=== PATIENT | male | born 1935 | race Hispanic/Latino ===

== ENCOUNTER 2017-06-21 22:57 | Inpatient (IN) | payer MEDICARE, SELFPAY ==
[2017-06-21] MEDS ORDERED: Ondansetron ODT 4 MG TAB ONE (23:18)
[2017-06-21 23:26] LABS: #Eosinphils 0.1 thou/uL (0.0-0.7); #Lymphocytes 0.6 thou/uL (1.20-3.40); #Monocytes 0.1 thou/uL (0.11-0.59); #Neutrophils 9.3 thou/uL (1.40-6.50); %Eosinophils 0.7 % (0.0-10.0); %Lymphocytes 6.3 % (21.0-51.0); %Monocytes 0.6 % (0.0-10.0); %Neutrophils 92.4 % (42.0-75.0); Hemoglobin 14.1 g/dL (14.0-18.0); Mean Corpuscular HGB CONC 33.2 g/dL (32.0-36.0); Mean Corpuscular Hemoglobin 31.9 pg (27.0-31.0); Mean Corpuscular Volume 95.9 fl (80.0-94.0); Mean Platelet Volume 7.7 fL (7.4-10.4); Platelet Count 254 thou/uL (130-400); Red Blood Cell (RBC) Count 4.42 mill/uL (4.70-6.10); White Blood Cell (WBC) Count 10.1 thou/uL (4.8-10.8)
--- NOTE | 2017-06-21 23:31 | RAD ---
CHEST ONE VIEW 06/21/17 HISTORY: Dyspnea. COMPARISON: None. FINDINGS: Heart size is enlarged. Blunting of the left lateral costophrenic sulcus. There is dense calcificatio ns of the transverse aorta. No pneumothorax. IMPRESSION: Cardiomegaly with mild blunting of the left lateral costophrenic sulcus. This may represent edema and small effusion. Followup two views chest recommended. POS: [facility]
[2017-06-21 23:33] LABS: INR-International Normal Ratio 1.2; PTT 25.4 SEC (22.9-36.1)
[2017-06-21] MEDS ORDERED: Digoxin 0.5 MG/2 ML AMP ONE (23:38)
[2017-06-21] MEDS ORDERED: Diltiazem HCl 125 MG, Admixture Fee 1 EACH in Sodium Chloride 0.9% 100 ML IVPB SCH (23:45)
[2017-06-21] MEDS ORDERED: Digoxin 0.5 MG/2 ML AMP SLOW IVP SCH (23:45)
[2017-06-21 23:49] LABS: ALT (SGPT) 18 U/L (8-55); AST (SGOT) 32 U/L (5-34); Albumin 3.7 g/dL (3.4-4.8); Alkaline Phosphatase 146 U/L (40-150); Anion Gap 19 mmol/L (10-20); BUN (Urea Nitrogen) 28 mg/dL (8.4-25.7); Bilirubin, Total 0.8 mg/dL (0.2-1.2); Calc. Creatinine Clearance 0 mL/min (70-130); Calcium 9.1 mg/dL (7.8-10.44); Carbon Dioxide 18 mmol/L (23-31); Chloride 109 mmol/L (98-107); Estimated GFR-MDRD 77; Globulin 3.6 g/dL (2.4-3.5); Glucose 189 mg/dL (83-110); Potassium 4.5 mmol/L (3.5-5.1); Protein, Total 7.3 g/dL (5.8-8.1); Sodium 141 mmol/L (136-145)
[2017-06-21 23:59] LABS: CKMB 3.2 ng/mL (0-6.6); Troponin I 0.036 ng/mL (< 0.028)
[2017-06-22] MEDS ORDERED: Enoxaparin Sodium 80 MG/0.8 ML SYRINGE ONE (00:12)
[2017-06-22] MEDS ORDERED: cefTRIAXone\\ROCEPHIN 2 GM in Sodium Chloride 0.9% 100 ML IVPB SCH (00:30)
[2017-06-22] MEDS ORDERED: Oseltamivir 75 MG CAP PO SCH (00:45)
[2017-06-22] MEDS ORDERED: Ondansetron ODT 4 MG TAB SL PRN (02:35)
[2017-06-22] MEDS ORDERED: Ondansetron HCl/PF 4 MG/2 ML Vial IVP PRN ×2 (02:35→10:29)
[2017-06-22 02:39] LABS: Troponin I 0.072 ng/mL (< 0.028)
[2017-06-22 03:01] VITALS: BMI 24.2
[2017-06-22 05:52] LABS: Lactic Acid 2.7 mmol/L (0.5-2.2)
[2017-06-22 06:09] LABS: Troponin I 0.075 ng/mL (< 0.028)
[2017-06-22] MEDS ORDERED: Acetaminophen 325 MG TAB PO PRN (06:15)
[2017-06-22 06:57] LABS: Anisocytosis SLIGHT = 6-15 cells (100X) (0-5/hpf); Band 12 % (5-11); Hemoglobin 12.6 g/dL (14.0-18.0); Lymphocytes 1 % (21-51); MDiff Complete? YES; Mean Corpuscular HGB CONC 32.7 g/dL (32.0-36.0); Mean Corpuscular Hemoglobin 31.3 pg (27.0-31.0); Mean Corpuscular Volume 95.7 fl (80.0-94.0); Mean Platelet Volume 8.4 fL (7.4-10.4); Monocytes 2 % (0-10); Neutrophil 85 % (42-75); PLT Morphology Comment Appears Adequate; Platelet Count 219 thou/uL (130-400); Polychromasia SLIGHT = 2-3 cells (100X) (0-2/hpf); Red Blood Cell (RBC) Count 4.02 mill/uL (4.70-6.10); White Blood Cell (WBC) Count 21.9 thou/uL (4.8-10.8)
[2017-06-22 07:00] LABS: ALT (SGPT) 19 U/L (8-55); AST (SGOT) 26 U/L (5-34); Albumin 3.3 g/dL (3.4-4.8); Alkaline Phosphatase 116 U/L (40-150); Anion Gap 14 mmol/L (10-20); BUN (Urea Nitrogen) 28 mg/dL (8.4-25.7); Bilirubin, Total 1.2 mg/dL (0.2-1.2); CRP (Inflammatory) 1.64 mg/dL (= or < 0.5); Calc. Creatinine Clearance 61 mL/min (70-130); Calcium 8.8 mg/dL (7.8-10.44); Carbon Dioxide 18 mmol/L (23-31); Chloride 111 mmol/L (98-107); Estimated GFR-MDRD 87; Globulin 2.8 g/dL (2.4-3.5); Glucose 108 mg/dL (83-110); Magnesium 1.6 mg/dL (1.6-2.6); Potassium 4.2 mmol/L (3.5-5.1); Protein, Total 6.1 g/dL (5.8-8.1); Sodium 139 mmol/L (136-145)
[2017-06-22 07:07] LABS: Phosphorus 1.6 mg/dL (2.3-4.7)
[2017-06-22] MEDS ORDERED: Aspirin 325 mg Enteric Coated Tablet PO SCH (09:00)
--- NOTE | 2017-06-22 09:03 | RAD ---
ABDOMEN 2 VIEWS: Date: 06/22/17 HISTORY: 82-year-old male with nausea and vomiting. COMPARISON: Chest x-ray dated 06/21/17. FINDINGS: Supine and left lateral decubitus views of the abdomen demonstrate gas and fecal material throughout the colon. There is an opacity potentially overlying the left kidney and could represent a renal calc ulus. There is also a questionable small opacity over the region of the right kidney. No large or sma ll bowel obstruction. No evidence for free intraperitoneal air. IMPRESSION: No bowel obstruction or free intraperitoneal air. POS: [facility]
[2017-06-22] MEDS ORDERED: Acetaminophen 500 MG TAB PO PRN (10:29)
[2017-06-22] MEDS ORDERED: cloNIDine 0.1 MG TAB PO PRN (10:29)
[2017-06-22] MEDS ORDERED: hydrALAZINE 20 MG/ML VIAL SLOW IVP PRN (10:29)
[2017-06-22] MEDS ORDERED: Ondansetron ODT 4 MG TAB PO PRN (10:29)
[2017-06-22] MEDS ORDERED: Dextrose 5% in Water 1,000 ML IV PRN (10:29)
[2017-06-22] MEDS ORDERED: Dextrose 50% Abboject 50 ML SYRINGE SLOW IVP PRN (10:29)
[2017-06-22] MEDS ORDERED: HumaLOG 300 UNITS/3 ML VIAL SC PRN ×2 (10:29)
[2017-06-22] MEDS ORDERED: Senokot 8.6 MG TAB PO PRN (10:29)
[2017-06-22] MEDS ORDERED: Diltiazem 125 MG in Sodium Chloride 0.9% 100 ML IVPB SCH (11:00)
[2017-06-22] MEDS ORDERED: Docusate 100 MG CAP PO SCH ×2 (11:00)
--- NOTE | 2017-06-22 11:11 | HP ---
DATE OF ADMISSION: 06/22/2017 PRIMARY CARE PROVIDER: Lul [place], [place]. CHIEF COMPLAINT: Shortness of breath and palpitations. HISTORY OF PRESENT ILLNESS: This is an 82-year-old male who presents to [facility] Emergency Department after complaining of increased shortness of breath, palpitations, and coughing approximately 1 hour prior to arrival. The patient states the symptoms began while at home with some shaking sensation, shortness of breath and coughing. The patient apparently was noted with fever en route; however, the patient denied any fever at home. The patient was treated with Ty lenol by EMS personnel as well as placed on a monitor showing atrial fibrillation with rapid ventricu lar response with heart rates in the 160s. The patient does admit to history of hypertension and con gestive heart failure as well as peripheral vascular disease and prior stroke. The patient had appar ently recently traveled from [place] on 06/09/2017 to permanently relocate in the [facility] with family. No specific change to his chronic medication regimen and patient states he has been compliant with his medications. The patient states he takes long-term Coumadin after sustai clare a stroke in the past. The patient denied any similar symptoms in family members at home, increa sed lower extremity swelling, coughing up blood or diarrhea. The patient states he is actually const ipated with his last bowel movement over the last 3-4 days. The patient also complains of difficulty with urination with lower abdominal pain. The patient did experience some nausea and vomiting on se veral episodes prior to evaluation in the emergency room. In the emergency room, patient was noted w ith atrial fibrillation with rapid ventricular response as stated previously and treated with IV Card izem as well as digoxin. The patient was placed on an infusion of diltiazem currently at 5 mg per ho ur with heart rate in the 80s. The patient also received subcutaneous Lovenox 70 mg x1 dose as well as Rocephin 2 g x1 dose. The patient also received Tamiflu 75 mg x1 dose. The patient was transferr ed to the telemetry unit for further evaluation. PAST MEDICAL HISTORY: 1. Question of congestive heart failure, unknown ejection fraction. 2. Diabetes mellitus type 2 with peripheral vascular disease. 3. History of hypertension. 4. History of cerebrovascular accident x4. 5. Question of benign prosthetic hyperplasia. 6. Chronic anticoagulation with Coumadin. PAST SURGICAL HISTORY: 1. Status post right bckax-hay-dawf amputation. 2. Status post appendectomy. CURRENT MEDICATIONS: 1. Coreg 12.5 mg p.o. b.i.d. 2. Cilostazol 100 mg p.o. daily. 3. Lasix 40 mg 1 tab p.o. daily. 4. Spironolactone 25 mg one tab p.o. daily. 5. Coumadin 3 mg 1 tab p.o. daily. ALLERGIES: No known drug allergies. FAMILY HISTORY: Positive for hypertension and diabetes. SOCIAL HISTORY: The patient originally from [place] relocating to [facility] to live with family at 06/09/2017. No current alcohol, tobacco or illicit drug use. REVIEW OF SYSTEMS: The following complete review of systems was negative, unless otherwise mentioned in the HPI or below: Constitutional: Weight loss or gain, ability to conduct usual activities. Skin: Rash, itching. Eyes: Double vision, pain. ENT/Mouth: Nose bleeding, neck stiffness, pain, tenderness. Cardiovascular: Palpitations, dyspnea on exertion, orthopnea. Respiratory: Shortness of breath, wheezing, cough, hemoptysis, fever or night sweats. Gastrointestinal: Poor appetite, abdominal pain, heartburn, nausea, vomiting, constipation, or diarr hea. Genitourinary: Urgency, frequency, dysuria, nocturia. Musculoskeletal: Pain, swelling. Neurologic/Psychiatric: Anxiety, depression. Allergy/Immunologic: Skin rash, bleeding tendency. Otherwise negative except as stated per HPI. PHYSICAL EXAMINATION: VITAL SIGNS: Currently blood pressure 137/73, pulse 89, respiratory rate 21, temperature 97.4 degree s Fahrenheit, O2 saturation 100% on room air. GENERAL APPEARANCE: This is an 82-year-old male, [place] speaking only, in no acute distres s. HEENT: Pupils are equal, round, and reactive to light and accommodation. Extraocular muscles are in tact. No scleral icterus, no conjunctival injection. Nares patent. OP is clear. Teeth in poor rep air. NECK: Supple, no cervical adenopathy, no thyromegaly, no carotid bruits, no JVD appreciated. Cervic al spine with full active and passive range of motion. No meningeal signs appreciated. CHEST: Diminished breath sounds in the bases bilaterally. CARDIOVASCULAR: S1 and S2 with irregular rate and rhythm. ABDOMEN: Rounded, soft, nontender, nondistended. Bowel sounds are positive in all four quadrants. There is no hepatosplenomegaly, no abdominal bruits, no rebound or guarding appreciated. EXTREMITIES: Right lkkgg-gsv-jwmv amputation. Stump intact. Left lower extremity without edema. P ulses are palpable distally at the dorsalis pedis, posterior tibial and popliteal arteries of the lef t lower extremity. NEUROLOGIC: Cranial nerves II-XII are grossly intact. No focal or lateralizing signs appreciated. PERTINENT LABORATORY DATA AND X-RAY FINDINGS: Sodium 139, potassium 4.2, chloride 111, CO2 of 18, BU N 28, creatinine 0.84, estimated GFR of 87, glucose 108, lactic acid level ranged between 2.7-5.4, ca lcium 8.8, phosphorus 1.6, magnesium 1.6. LFT within normal limits. Troponin I ranged between 0.036 -0.075. CRP 1.64. BNP 2428, albumin 3.3. TSH 0.50. CBC showed white blood cell count ranging betw een 10.1-21.9. Hemoglobin ranged between 12.6-14.1 and platelet count 219 with 85% neutrophilia. PT 15.0, INR 1.2, PTT 25.4. Influenza A and B antigen on 06/21/2017 negative. Portable chest x-ray da bindu 06/21/2017 showed cardiomegaly with mild blunting of the left lateral costophrenic sulcus. Abdom inal radiographs dated 06/22/2017 showed no acute intraabdominal process. EKG dated 06/21/2017 by my interpretation shows atrial fibrillation with rapid ventricular response, heart rate in the 60s. ASSESSMENT AND PLAN: 1. Atrial fibrillation with rapid ventricular response. The patient will be admitted to the telemet ry unit. We will continue diltiazem infusion at 5 mg per hour. Restart home Coreg 12.5 mg p.o. b.i. d. Check 2D transthoracic echocardiogram. The patient received Lovenox 70 mg x1 dose in the emergen cy room. We will hold further anticoagulation. Resume home regimen of Coumadin 3 mg daily. Consult Cardiology Service for further evaluation and recommendations for management. Check magnesium and p hosphorus level in the a.m. 2. Acute febrile illness, etiology unclear. Suspicion for viral syndrome. Check respiratory virus panel, PCR. Continue Rocephin 2 g IV q.24 hours, pending final culture results. Questionable urinar y tract infection. 3. Lactic acidosis. Suspect secondary to febrile illness. Overall, lactic acid level improving. W e will continue supportive management and empiric IV antibiotic therapy as outlined previously. 4. Elevated troponin I. Suspect demand ischemia in the context of atrial fibrillation with rapid ve ntricular response. Consult Cardiology Service for further evaluation. 5. Leukocytosis with neutrophilia. Continue empiric IV antibiotic therapy with Rocephin 2 grams santos ly. Await final blood and urine culture results. 6. Diabetes mellitus type 2. Insulin sliding scale for reflexive coverage. Check A1c level in the a.m. Serial Accu-Cheks before meals and at bedtime. 7. Hypertension. Resume home antihypertensive regimen and monitor clinical response. 8. Prophylaxis. Sequential compression devices while in bed. Pepcid 20 mg p.o. b.i.d. 9. Code status is FULL. Surrogate medical decision maker is the patient's daughter.
--- NOTE | 2017-06-22 14:32 | CON ---
DATE OF CONSULTATION: 06/22/2017 REASON FOR CONSULTATION: Atrial fibrillation. PRIMARY CARE PROVIDER: Santiago Kim D.O. HISTORY OF PRESENT ILLNESS: Mr. Wadsworth is an 82-year-old gentleman who is visiting from [place]. He has an extensive cardiac history with a cardiomyopathy, diabetes mellitus, hypertension, and CVA x4 in the past. He recently presented with shortness of breath. He has also presented with febrile illness. The history is fairly limited. Upon my arrival, he had diffuse pain and was shivering. He has been placed on antibiotic therapy. PAST MEDICAL HISTORY: As above including right kipcw-exl-mesx amputation and appendectomy. HOME MEDICATIONS: Include cilostazol, Lasix, Coreg, spironolactone, Coumadin. ALLERGIES: None. SOCIAL HISTORY: As above. No current tobacco or alcohol use. REVIEW OF SYSTEMS: Ten point review of systems is reviewed and as above, otherwise negative. PHYSICAL EXAMINATION: GENERAL: Patient is a pleasant male who is in no acute distress. The patient appears his stated age . VITAL SIGNS: Blood pressure 131/60, pulse 76, temperature 97.5. NEUROLOGIC: The patient is alert and oriented times 3 with no focal neurologic deficits. HEENT: Sclerae without icterus. Mouth has moist mucous membranes with normal pallor. NECK: No JVD. Carotid upstroke brisk. No bruits bilaterally. LUNGS: Clear to auscultation with unlabored respirations. BACK: No scoliosis or kyphosis. CARDIAC: Irregular, irregular. ABDOMEN: Soft, nontender, nondistended. No peritoneal signs present. No hepatosplenomegaly. No ab normal striae. EXTREMITIES: 2+ femoral and 2+ dorsalis pedis pulses. No cyanosis, clubbing, or edema. SKIN: No gross abnormalities. PERTINENT LABORATORY DATA: Hemoglobin 12.6, creatinine 0.84. Troponin 0.05. IMPRESSION: 1. Atrial fibrillation with rapid ventricular response. 2. Febrile illness. 3. Peripheral vascular disease. 4. Coronary artery disease. 5. Cardiomyopathy ?. RECOMMENDATIONS: Continue with carvedilol at 12.5 mg 1 p.o. b.i.d. He is currently on Cardizem at 5 mg per hour for rate control. We will increase Cardizem to t.i.d. dosing for better rate control. Continue antibiotic treatment. Echo with Doppler to assess LV function.
[2017-06-22] MEDS: traMADol HCl 50 MG TAB PO PRN (14:59)
[2017-06-22] MEDS: Carvedilol 6.25 MG TAB PO SCH ×2 (15:01→21:29)
[2017-06-22] MEDS: Warfarin Sodium 3 MG TAB PO SCH (17:57)
[2017-06-22] MEDS ORDERED: Carvedilol 6.25 MG TAB PO SCH (21:00)
[2017-06-22] MEDS: Docusate 100 MG CAP PO SCH (21:29)
[2017-06-22] MEDS: Famotidine 20 MG TAB PO SCH (21:29)
[2017-06-23 05:34] LABS: Hemoglobin A1c 4.9 % (4.0-6.0)
[2017-06-23 05:47] LABS: Magnesium 1.7 mg/dL (1.6-2.6); Phosphorus 3.2 mg/dL (2.3-4.7)
[2017-06-23 05:52] LABS: Anisocytosis SLIGHT = 6-15 cells (100X) (0-5/hpf); Band 2 % (5-11); Hemoglobin 11.2 g/dL (14.0-18.0); Lymphocytes 14 % (21-51); MDiff Complete? YES; Macrocytosis SLIGHT = 6-15 cells (100X) (0-5/hpf); Mean Corpuscular HGB CONC 32.5 g/dL (32.0-36.0); Mean Corpuscular Hemoglobin 31.5 pg (27.0-31.0); Mean Corpuscular Volume 96.7 fl (80.0-94.0); Mean Platelet Volume 8.4 fL (7.4-10.4); Monocytes 9 % (0-10); Neutrophil 73 % (42-75); PLT Morphology Comment Appears Adequate; Platelet Count 159 thou/uL (130-400); Reactive Lymphocytes 2 % (0-10); Red Blood Cell (RBC) Count 3.57 mill/uL (4.70-6.10); Tear Drops SLIGHT = 2-5 cells (100X) (0-1/hpf)
[2017-06-23] MEDS: traMADol HCl 50 MG TAB PO PRN (08:20)
[2017-06-23] MEDS: Aspirin 81 mg Enteric Coated Tablet PO SCH (08:26)
[2017-06-23] MEDS: Famotidine 20 MG TAB PO SCH ×2 (08:26→21:06)
[2017-06-23] MEDS: Spironolactone 25 MG TAB PO SCH (08:26)
[2017-06-23] MEDS: Docusate 100 MG CAP PO SCH ×2 (08:26→21:06)
[2017-06-23] MEDS: Carvedilol 6.25 MG TAB PO SCH ×3 (08:26→21:05)
[2017-06-23] MEDS: Cilostazol 100 MG TAB PO SCH (08:47)
[2017-06-23] MEDS ORDERED: Prevnar 13-Val Conj/PF 0.5 ML SYRINGE IM ONE (09:00)
[2017-06-23] MEDS ORDERED: FLU VACC TS2017-18 (>65YR) 0.5 ML SYRINGE IM ONE (09:00)
[2017-06-23] MEDS: Morphine 4 MG/ML Carpuject SLOW IVP PRN (09:02)
[2017-06-23] MEDS: cefTRIAXone\\ROCEPHIN 2 GM in Sodium Chloride 0.9% 100 ML IVPB SCH (10:03)
--- NOTE | 2017-06-23 10:20 | PDOC.PN ---
- Subjective Encounter Start Date: 06/23/17 Encounter Start Time: 10:15 Subjective: f/u for A-fib RVR on prior Cardizem gtt now d/c'd due to bradycardia. -: Bacteremia noted with suspected E. coli with 2/2 blood cx + tx with -: Rocephin. c/o general body pain. No fever or cough - Objective Resuscitation Status: Resuscitation Status FULL:Full Resuscitation MAR Reviewed: Yes Vital Signs & Weight: Vital Signs (12 hours) Temp Pulse Resp BP BP Pulse Ox 06/23/17 08:26 119/82 06/23/17 07:05 97.5 F L 83 18 119/82 99 06/23/17 04:00 97.9 F 60 20 115/57 L 99 06/22/17 23:30 97.5 F L 70 20 98/54 L 97 Weight Weight 144 lb I&O: 06/22/17 06/23/17 06/24/17 06:59 06:59 06:59 Intake Total 1245 Output Total 210 Balance 1035 Result Diagrams: 06/23/17 04:49 06/22/17 05:12 Additional Labs: Accuchecks 06/23/17 06/22/17 06/22/17 05:08 21:09 16:58 POC Glucose 127 H 132 H 107 06/22/17 12:37 POC Glucose 135 H Microbiology 06/22/17 14:04 Nasopharyngeal swab Respiratory Virus Panel (PCR) ([facility]) - Final 06/21/17 23:15 Nasal swab Influenza Types A,B Direct EIA - Final 06/21/17 23:27 Venous blood - Right Arm Blood Culture - Preliminary Gram Negative Osei 06/21/17 23:15 Venous blood - Left Arm Blood Culture - Preliminary Escherichia coli Laboratory Tests 06/21/17 06/21/17 06/22/17 23:15 23:15 05:12 WBC 10.1 Hgb 14.1 Neutrophils % 92.4 H Neutrophils % (Manual) Band Neuts % (Manual) Hemoglobin A1c Lactic Acid 5.4 H* 2.7 H Phosphorus Magnesium 06/22/17 06/23/17 06/23/17 05:12 04:49 04:49 WBC 21.9 H Hgb 12.6 L Neutrophils % Neutrophils % (Manual) 85 H 73 Band Neuts % (Manual) 12 H 2 L Hemoglobin A1c Lactic Acid Phosphorus 3.2 Magnesium 1.7 06/23/17 04:49 WBC Hgb Neutrophils % Neutrophils % (Manual) Band Neuts % (Manual) Hemoglobin A1c 4.9 Lactic Acid Phosphorus Magnesium Radiology Reviewed by me: Yes (2D echo - EF 20-25%, mod MR, AR, LAE) EKG Reviewed by me: Yes (Tele - A-fib in 60's) Phys Exam - Physical Examination Constitutional: NAD HEENT: PERRLA, oral pharynx no lesions Neck: no JVD, supple Respiratory: no wheezing, clear to auscultation bilateral Cardiovascular: irregular Gastrointestinal: soft, non-tender, no distention, positive bowel sounds R AKA, stump intact Musculoskeletal: pulses present Neurological: normal sensation, moves all 4 limbs Skin: normal turgor, cap refill <2 seconds Dx/Plan (1) Sepsis Code(s): A41.9 - SEPSIS, UNSPECIFIED ORGANISM Status: Acute Qualifiers: Sepsis type: Escherichia coli Qualified Code(s): A41.51 - Sepsis due to Escherichia coli [E. coli] Comment: Continue Rocephin 2gm IV daily, await final sensitivities (2) Atrial fibrillation with RVR Code(s): I48.91 - UNSPECIFIED ATRIAL FIBRILLATION Status: Acute Comment: ? acute/chronic, rate controlled currently off Cardizem gtt, continue Coreg 12.5mg TID, Coumadin daily (3) Febrile illness, acute Code(s): R50.9 - FEVER, UNSPECIFIED Status: Acute (4) Elevated troponin I level Code(s): R74.8 - ABNORMAL LEVELS OF OTHER SERUM ENZYMES Status: Acute (5) Cardiomyopathy Code(s): I42.9 - CARDIOMYOPATHY, UNSPECIFIED Status: Chronic Comment: EF 20- 25%, continue Losartan and Spironolactone, ASA 81mg daily, ? AICD - Plan continue antibiotics, PT/OT, social work associate, DVT proph w/SCDs Stable overall -: Continue Rocephin pending final sensitivities -: Pain control with Tylenol, Ultram -: Morphine Sulfate 2mg IV q3h prn severe pain -: Continue Losartan, ASA, Lipitor * Toradol 15mg IV q6h * AM lab: BMP, CBC
[2017-06-23] MEDS: Ketorolac Tromethamine 30 MG/ML VIAL IVP SCH ×3 (12:19→23:49)
[2017-06-23] MEDS: Warfarin Sodium 3 MG TAB PO SCH (17:44)
[2017-06-23] MEDS: Atorvastatin Calcium 40 MG TAB PO SCH (21:06)
[2017-06-24 05:32] LABS: Anion Gap 13 mmol/L (10-20); BUN (Urea Nitrogen) 40 mg/dL (8.4-25.7); Calc. Creatinine Clearance 51 mL/min (70-130); Calcium 8.4 mg/dL (7.8-10.44); Carbon Dioxide 22 mmol/L (23-31); Chloride 108 mmol/L (98-107); Estimated GFR-MDRD 68; Glucose 96 mg/dL (83-110); Potassium 4.5 mmol/L (3.5-5.1); Sodium 138 mmol/L (136-145)
[2017-06-24] MEDS: Ketorolac Tromethamine 30 MG/ML VIAL IVP SCH ×3 (05:32→17:41)
[2017-06-24 05:41] LABS: Band 2 % (5-11); Eosinophils 2 % (0-10); Hemoglobin 11.4 g/dL (14.0-18.0); Lymphocytes 13 % (21-51); MDiff Complete? YES; Mean Corpuscular HGB CONC 33.3 g/dL (32.0-36.0); Mean Corpuscular Hemoglobin 31.8 pg (27.0-31.0); Mean Corpuscular Volume 95.5 fl (80.0-94.0); Mean Platelet Volume 8.6 fL (7.4-10.4); Monocytes 6 % (0-10); Neutrophil 77 % (42-75); PLT Morphology Comment Appears Adequate; Platelet Count 159 thou/uL (130-400); RBC Distribution Width 14.8 % (11.5-14.5); Red Blood Cell (RBC) Count 3.59 mill/uL (4.70-6.10); White Blood Cell (WBC) Count 6.5 thou/uL (4.8-10.8)
[2017-06-24] MEDS: Losartan 25 MG TAB PO SCH (09:26)
[2017-06-24] MEDS: Aspirin 81 mg Enteric Coated Tablet PO SCH (09:26)
[2017-06-24] MEDS: Cilostazol 100 MG TAB PO SCH (09:26)
[2017-06-24] MEDS: Carvedilol 6.25 MG TAB PO SCH ×3 (09:26→20:36)
[2017-06-24] MEDS: Docusate 100 MG CAP PO SCH ×2 (09:26→20:38)
[2017-06-24] MEDS: cefTRIAXone\\ROCEPHIN 2 GM in Sodium Chloride 0.9% 100 ML IVPB SCH (09:27)
[2017-06-24] MEDS: Famotidine 20 MG TAB PO SCH ×2 (09:27→20:36)
[2017-06-24] MEDS: Spironolactone 25 MG TAB PO SCH (09:27)
--- NOTE | 2017-06-24 09:49 | PDOC.PN ---
- Subjective Encounter Start Date: 06/24/17 Encounter Start Time: 09:47 Mr. Ananth Lopez was seen today in follow-up of AFIB and E. Coli bacteremia- He does not have any comlaints today. He admits to some lower abdominal pain, and occasional constipation. - Objective Resuscitation Status: Resuscitation Status FULL:Full Resuscitation MAR Reviewed: Yes Vital Signs & Weight: Vital Signs (12 hours) Temp Pulse Resp BP BP Pulse Ox 06/24/17 09:26 122/56 L 06/24/17 07:05 97.6 F 82 16 122/56 L 96 06/24/17 03:30 97.3 F L 85 24 H 131/73 100 06/23/17 23:00 97.4 F L 70 20 114/60 95 Weight Weight 145 lb 8 oz I&O: 06/23/17 06/24/17 06/25/17 06:59 06:59 06:59 Intake Total 1245 240 Output Total 210 Balance 1035 240 Result Diagrams: 06/24/17 04:48 06/24/17 04:48 Phys Exam - Physical Examination HEENT: PERRLA Respiratory: no wheezing, no rales, no rhonchi, clear to auscultation bilateral Cardiovascular: RRR, no significant murmur, no rub Gastrointestinal: soft, non-tender, positive bowel sounds Musculoskeletal: edema present + mild edema on the left foot, pulse is diminshed mild erythema of the foot Dx/Plan (1) E coli bacteremia Code(s): R78.81 - BACTEREMIA Status: Acute (2) Atrial fibrillation with RVR Code(s): I48.91 - UNSPECIFIED ATRIAL FIBRILLATION Status: Acute Comment: ? acute/chronic, rate controlled currently off Cardizem gtt, continue Coreg 12.5mg TID, Coumadin daily (3) Diabetes mellitus type 2 in nonobese Code(s): E11.9 - TYPE 2 DIABETES MELLITUS WITHOUT COMPLICATIONS Status: Acute (4) Hypertension Code(s): I10 - ESSENTIAL (PRIMARY) HYPERTENSION Status: Acute (5) Peripheral vascular disease Code(s): I73.9 - PERIPHERAL VASCULAR DISEASE, UNSPECIFIED Status: Acute - Plan * AFIB with RVR- patients' heart rate is stable, and he is now off the Cardizem drip * Continue Carvediolol * Coumadin for CVA prevention- will need to check his PT/INR * E. Coli Bacteremia- ? urine source. I was not able to locate a UA or Urine culture-. He has been on antibiotics several days now, but will check a UA. He has complained of some lower abdominal discomfort, and constipation- will check a CT-scan of abdomen/pelvis- consult ID to help with recommending Antibiotic, and length of therapy * DM- blood glucose is stable * HTN- blood pressure is stable
[2017-06-24 10:12] LABS: INR-International Normal Ratio 1.2; Prothrombin Time 15.8 SEC (12.0-14.7)
--- NOTE | 2017-06-24 13:25 | CT ---
CT ABDOMEN AND PELVIS WITH CONTRAST: HISTORY: E. coli bacteremia. Mild abdominal pain. COMPARISON: None. FINDINGS: There is edema in the lung bases. Small effusions. Focal area of consolidation along the medial mar gin of the left lower lobe which may represent layering effusion versus consolidation. Heart size is enlarged. No pericardial effusion. No dilated loops of large or small bowel. Moderate diverticular disease of the sigmoid colon without active inflammation. Numerous calcifications of the kidneys bilaterally which are nonobstructive. No hydroureteral nephro sis. There is minimal contrast within the vascular structures of the abdomen and pelvis likely seque lae of poor cardiac output. Visualized portions of the superior mesenteric artery and celiac trunk a re both patent. There is focal ectasia of the infrarenal abdominal aorta with peripheral thrombosis measuring up to 2.4 cm in size, nonaneurysmal. Moderate degenerative disease at pubic symphysis. Mo derate degenerative disk space disease at L4-56. The spleen and liver are unremarkable as well as the gallbladder. Mild fatty atrophy of the pancreas . IMPRESSION: 1. Limited evaluation due to the lack of normal contrast opacification of the abdomen and pelvis, li ann sequelae of poor cardiac output. 2. Pulmonary edema. 3. Cardiomegaly. 4. Nonobstructive bilateral renal calculi. 5. Likely layering pleural effusion on the left, mostly likely consolidation in the left lower lobe. 6. Mild diverticular disease of sigmoid colon without active inflammation. POS: [facility]
[2017-06-24 14:45] LABS: Bilirubin Negative (Negative); Blood, Urine Moderate (Negative); Clarity CLEAR (Clear); Glucose, Urine (Dipstick) Negative (Negative); Leukocyte Moderate (Negative); Nitrite Negative (Negative); Protein, Urine (Dipstick) Negative (Neg-Trace)
[2017-06-24 14:50] LABS: Bacteria/HPF None Seen HPF (None Seen); Hyaline Casts/LPF 4-6 HYALINE CAST LPF (0-3 Hyaline); Pathc Cast-AUWi Flag 0.54 (0-2.49); Squamous Epithelial 0-3 HPF (0-3); WBC/HPF 21-50 HPF (0-3)
[2017-06-24 14:52] LABS: Specific Gravity, Urine 1.059 (1.002-1.036); Yeast-AUWi Flag 52.3 (0-25.0)
[2017-06-24 15:02] LABS: Yeast-All Forms None Seen HPF (None Seen)
[2017-06-24] MEDS ORDERED: Iopamidol 370 76% 100 ML VIAL ONE (15:46)
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
[2017-06-24] MEDS: Warfarin Sodium 3 MG TAB PO SCH (17:41)
[2017-06-24] MEDS ORDERED: Sodium Chloride 0.9% 10 ML ONE ×3 (20:23→23:43)
[2017-06-24] MEDS: Atorvastatin Calcium 40 MG TAB PO SCH (20:36)
[2017-06-25] MEDS: Ketorolac Tromethamine 30 MG/ML VIAL IVP SCH ×5 (00:04→23:16)
[2017-06-25 05:26] LABS: INR-International Normal Ratio 1.2; Prothrombin Time 15.8 SEC (12.0-14.7)
[2017-06-25] MEDS: Sodium Chloride 0.9% 10 ML ONE (05:58)
[2017-06-25] MEDS: Docusate 100 MG CAP PO SCH ×2 (09:23→20:50)
[2017-06-25] MEDS: Losartan 25 MG TAB PO SCH (09:23)
[2017-06-25] MEDS: Cilostazol 100 MG TAB PO SCH (09:23)
[2017-06-25] MEDS: Famotidine 20 MG TAB PO SCH ×2 (09:24→20:50)
[2017-06-25] MEDS: Aspirin 81 mg Enteric Coated Tablet PO SCH (09:24)
[2017-06-25] MEDS: Carvedilol 6.25 MG TAB PO SCH ×3 (09:24→20:50)
[2017-06-25] MEDS: Spironolactone 25 MG TAB PO SCH (09:24)
--- NOTE | 2017-06-25 11:41 | PDOC.PN ---
- Subjective Encounter Start Date: 06/25/17 Encounter Start Time: 11:40 Mr. Lopez was seen today in follow-up. He complains of some pain in his left foot. He also notes some abdominal discomfort as well. - Objective Resuscitation Status: Resuscitation Status FULL:Full Resuscitation MAR Reviewed: Yes Vital Signs & Weight: Vital Signs (12 hours) Temp Pulse Resp BP BP BP Pulse Ox 06/25/17 09:24 169/85 H 06/25/17 08:05 98 F 85 20 169/85 H 100 06/25/17 08:00 98 F 85 20 100 06/25/17 04:00 96.3 F L 85 18 126/76 92 L 06/25/17 00:03 77 20 95/56 L 98 Weight Weight 139 lb 8 oz I&O: 06/24/17 06/25/17 06/26/17 06:59 06:59 06:59 Intake Total 240 991 Balance 240 991 Result Diagrams: 06/24/17 04:48 06/24/17 04:48 Additional Labs: Accuchecks 06/25/17 06:11 POC Glucose 94 Phys Exam - Physical Examination HEENT: PERRLA Respiratory: no wheezing + basilar rales Cardiovascular: RRR, no significant murmur Gastrointestinal: soft, non-tender, positive bowel sounds Musculoskeletal: edema present Mild hyperemia of the foot, decreased pulses Dx/Plan (1) E coli bacteremia Code(s): R78.81 - BACTEREMIA Status: Acute (2) Atrial fibrillation with RVR Code(s): I48.91 - UNSPECIFIED ATRIAL FIBRILLATION Status: Acute Comment: ? acute/chronic, rate controlled currently off Cardizem gtt, continue Coreg 12.5mg TID, Coumadin daily (3) Diabetes mellitus type 2 in nonobese Code(s): E11.9 - TYPE 2 DIABETES MELLITUS WITHOUT COMPLICATIONS Status: Acute (4) Hypertension Code(s): I10 - ESSENTIAL (PRIMARY) HYPERTENSION Status: Acute (5) Peripheral vascular disease Code(s): I73.9 - PERIPHERAL VASCULAR DISEASE, UNSPECIFIED Status: Acute - Plan * E Coli Bacteremia- likely from a urine source- Will continue Rocephin IV until discharge, and then will transition to Omnicef * Acute on chronic systolic heart failure- compensated * HTN- blood pressure has been a bit labile- will monitor * DM- blood glucose is stable * AFIB - heart rate is stable- INR is subtherapeutic- will increase coumadin to 5 mg a day * Disposition as per Cardiology.
--- NOTE | 2017-06-25 11:59 | PQF ---
CLINICAL DOCUMENTATION IMPROVEMENT CLARIFICATION FORM: ICD-10 Updated PLEASE DO AN ADDENDUM TO THE PROGRESS NOTE WITH ANY DOCUMENTATION UPDATES OR ADDITIONS AND CARRY THROUGH TO DC SUMMARY. THANK YOU. DATE: 06/25 ATTN: DR. JULIANNE NUR Please exercise your independent, professional judgment in responding to the clarification form. Clinical indicators are provided on the bottom of this form for your review, Please specify: Present on Admission (POA): [ X ] Yes [ ] No [ ] Unable to determine Please check appropriate box(s): [ X] Sepsis due to: (Pna, UTI, gangrenous gall bladder, etc.) __Probable Urine source [ ] Localized infection without sepsis [ ] Other diagnosis [ ] Unable to determine For continuity of documentation, please document condition throughout progress notes and discharge summary. Thank You. CLINICAL INDICATORS - SIGNS / SYMPTOMS / LABS WBC: 10.1 (06/21, ADMIT) 21.9 (06/22, W/IN 24 HRS OF ADMIT) BANDS: 12% (06/22, W/IN 24 HRS ADMIT) LACTIC ACID: 5.4 (06/21) CRP: 1.64 (06/22, W/IN 24 HRS ADMIT) BLOOD CULTURES TAKEN IN ER 06/21: POSITIVE E COLI IN 2 OF 2 BOTTLES ATTENDING PHYSICIAN PN DATED 06/23: DX/PLAN: 1) SEPSIS D/T E COLI INFECTIOUS DISEASE CONSULT DOCUMENTATION 06/24: ASSESSMENT & PLAN: ...NOW WITH EVIDENCE OF SEPSIS WITH E COLI BACTEREMIA 2/2 LIKELY TO UTI W/LIKELY PYELONEPHRITIS RISK FACTORS: E COLI BACTEREMIA (2 OF 2 BLOOD CX) UTI W/LIKELY PYELONEPHRITIS TREATMENTS: IV ANTIBIOTICS (ROCEPHIN 06/21 - PRESENT) INFECTIOUS DISEASE CONSULT THANK YOU! Lucy (This form is maintained as a part of the permanent medical record) 2014 [employer]. All Rights Reserved Lucy Jones RN, BSN [email or web address] Office: [phone] [facility]
--- NOTE | 2017-06-25 12:18 | PRG ---
DATE OF SERVICE: 06/25/2017 SUBJECTIVE: Mr. Lopez is doing well. No chest pain or pressure noted. He did have 5 beats of non- sustained VT yesterday. OBJECTIVE: VITAL SIGNS: Blood pressure 169/85, pulse 85, temperature 98. GENERAL: Patient is a pleasant male, who is in no acute distress. The patient appears his stated ag e. NEUROLOGIC: The patient is alert and oriented times 3 with no focal neurologic deficits. HEENT: Sclerae without icterus. Mouth has moist mucous membranes with normal pallor. NECK: No JVD. Carotid upstroke brisk. No bruits bilaterally. LUNGS: Clear to auscultation with unlabored respirations. BACK: No scoliosis or kyphosis. CARDIAC: Irregularly irregular. ABDOMEN: Soft, nontender, nondistended. No peritoneal signs present. No hepatosplenomegaly. No ab normal striae. EXTREMITIES: A 2+ femoral and 2+ dorsalis pedis pulses. No cyanosis, clubbing, or edema. SKIN: No gross abnormalities. IMPRESSION: 1. Ischemic cardiomyopathy. 2. Coronary artery disease. 3. Status post bypass surgery. 4. Pyelonephritis. RECOMMENDATIONS: I was able to talk to the family today about Mr. Lopez. I discussed LifeVest and his ischemic cardiomyopathy. They stated in [place] he did have a LifeVest prescribed. He used it for 1 day and took it off. He is not interested in any further therapy including LifeVest or ICD. He would like to proceed with medical therapy, although the family even states he is not very compl iant with medicines. At this point, we will continue current treatment.
[2017-06-25] MEDS: CEFTRIAXONE 2GM/50 ML BAG 2 GM in Premix Bag 1 BAG IVPB SCH (12:22)
[2017-06-25] MEDS: Warfarin Sodium 5 MG TAB PO SCH (16:37)
[2017-06-25] MEDS ORDERED: Sodium Chloride 0.9% 10 ML ONE ×2 (20:04→23:07)
[2017-06-25] MEDS: Atorvastatin Calcium 40 MG TAB PO SCH (20:50)
[2017-06-26] MEDS ORDERED: Sodium Chloride 0.9% 10 ML ONE ×3 (03:41→05:03)
[2017-06-26] MEDS: Sodium Chloride 0.9% 10 ML ONE (03:44)
[2017-06-26] MEDS: Morphine 4 MG/ML Carpuject SLOW IVP PRN (03:45)
[2017-06-26] MEDS ORDERED: Metoprolol Tartrate 5 MG/5 ML VIAL IVP SCH (04:30)
[2017-06-26 05:15] LABS: INR-International Normal Ratio 1.3; Prothrombin Time 15.9 SEC (12.0-14.7)
[2017-06-26] MEDS: Ketorolac Tromethamine 30 MG/ML VIAL IVP SCH ×3 (05:16→17:36)
[2017-06-26] MEDS: traMADol HCl 50 MG TAB PO PRN (05:54)
[2017-06-26] MEDS: Cilostazol 100 MG TAB PO SCH (11:18)
[2017-06-26] MEDS: Losartan 25 MG TAB PO SCH (11:18)
[2017-06-26] MEDS: Famotidine 20 MG TAB PO SCH ×2 (11:19→21:03)
[2017-06-26] MEDS: Carvedilol 6.25 MG TAB PO SCH (11:19)
[2017-06-26] MEDS: Spironolactone 25 MG TAB PO SCH (11:19)
[2017-06-26] MEDS: Aspirin 81 mg Enteric Coated Tablet PO SCH (11:19)
--- NOTE | 2017-06-26 11:42 | PDOC.PN ---
- Subjective Encounter Start Date: 06/26/17 Encounter Start Time: 11:40 guy Lopez was seen today in follow-up of AFIB. He says he feels fine, and now denies abdominal pain, and says the pain in his foot is less. - Objective Resuscitation Status: Resuscitation Status FULL:Full Resuscitation MAR Reviewed: Yes Vital Signs & Weight: Vital Signs (12 hours) Temp Pulse Resp BP BP Pulse Ox 06/26/17 11:19 133/84 06/26/17 08:00 98.3 F 112 H 22 H 133/84 94 L 06/26/17 05:14 137 H 20 128/60 06/26/17 04:41 135 H 16 121/86 06/26/17 03:35 97.3 F L 146 H 20 172/99 H 99 Weight Weight 142 lb 11.2 oz I&O: 06/25/17 06/26/17 06/27/17 06:59 06:59 06:59 Intake Total 991 1303 Balance 991 1303 Result Diagrams: 06/24/17 04:48 06/24/17 04:48 Additional Labs: Accuchecks 06/26/17 06/25/17 06/25/17 05:52 21:08 16:52 POC Glucose 112 H 177 H 100 06/25/17 12:02 POC Glucose 91 Phys Exam - Physical Examination HEENT: PERRLA Respiratory: no wheezing, no rales, no rhonchi, clear to auscultation bilateral Cardiovascular: RRR Gastrointestinal: soft, non-tender, positive bowel sounds Musculoskeletal: edema present + mild pedal edema, less hyperemia. foot is warm, D.P. pulse is diminished Dx/Plan (1) E coli bacteremia Code(s): R78.81 - BACTEREMIA Status: Acute Comment: Likely from Urine Source - Meets criteria for E. Coli sepsis (2) Atrial fibrillation with RVR Code(s): I48.91 - UNSPECIFIED ATRIAL FIBRILLATION Status: Acute Comment: ? acute/chronic, rate controlled currently off Cardizem gtt, continue Coreg 12.5mg TID, Coumadin daily (3) Diabetes mellitus type 2 in nonobese Code(s): E11.9 - TYPE 2 DIABETES MELLITUS WITHOUT COMPLICATIONS Status: Acute (4) Hypertension Code(s): I10 - ESSENTIAL (PRIMARY) HYPERTENSION Status: Acute (5) Peripheral vascular disease Code(s): I73.9 - PERIPHERAL VASCULAR DISEASE, UNSPECIFIED Status: Acute - Plan * AFIB- his heart rate was elevated last night and into this morning. He was given Metoprolol 5mg IV last night- continue Carvediolol, and await Further recommendations from Cardiology * UTI with E. Coli sepsis- improving- continue Rocephin while in hospital, then transition to oral for the remaining 14 days as outpatient * HTN- blood pressure is stable * DM- stable * CVA prophylaxis- INR is 1.3 today, now on Coumadin 5 mg continue to monitor * PVD- stable.
[2017-06-26] MEDS ORDERED: Carvedilol 6.25 MG TAB PO SCH (13:30)
[2017-06-26] MEDS: CEFTRIAXONE 2GM/50 ML BAG 2 GM in Premix Bag 1 BAG IVPB SCH (13:58)
--- NOTE | 2017-06-26 14:49 | PRG ---
DATE OF SERVICE: 06/26/2017 SUBJECTIVE: Mr. Lopez had increased heart rate noted last night. He is now better. He received IV metoprolol. He is currently on Corge 12.5 mg p.o. t.i.d. He has no current complaints. He would l guicho to go home. OBJECTIVE: VITAL SIGNS: Blood pressure 133/84, pulse 112, respirations 20. LUNGS: Rhonchi bilaterally. HEART: Irregularly irregular. ABDOMEN: Soft, nontender, and nondistended. EXTREMITIES: No edema. IMPRESSION: 1. Chronic ischemic cardiomyopathy. 2. Coronary artery disease. 3. Status post bypass surgery. 4. Atrial fibrillation. RECOMMENDATIONS: 1. Increase Coreg to 25 mg p.o. b.i.d. 2. Give additional Coreg 6.25 x1 now. 3. Once the patient's rate is controlled, will be okay from my standpoint for discharge on Coumadin. The patient not interested in LifeVest or ICD.
[2017-06-26] MEDS: Docusate 100 MG CAP PO SCH ×2 (17:33→21:03)
[2017-06-26] MEDS: Warfarin Sodium 5 MG TAB PO SCH (17:36)
[2017-06-26] MEDS: Carvedilol 25 MG TAB PO SCH (21:03)
[2017-06-26] MEDS: Atorvastatin Calcium 40 MG TAB PO SCH (21:03)
[2017-06-27] MEDS: Ketorolac Tromethamine 30 MG/ML VIAL IVP SCH ×3 (00:37→13:19)
[2017-06-27 05:12] LABS: INR-International Normal Ratio 1.4; Prothrombin Time 17.2 SEC (12.0-14.7)
[2017-06-27] MEDS ORDERED: Sodium Chloride 0.9% 10 ML ONE (08:16)
--- NOTE | 2017-06-27 08:47 | PRG ---
DATE OF SERVICE: 06/27/2017 SUBJECTIVE: Doing well. Denies any respiratory symptoms. No abdominal pain, no diarrhea. PHYSICAL EXAMINATION: VITAL SIGNS: Normal. GENERAL: Awake, alert, oriented. LUNGS: Clear. HEART: S1, S2, regular rate. ABDOMEN: Soft. LABORATORY DATA: White cell count down to 6.5, hemoglobin 11.4, platelets 159 and the last chemistry is from the 15th with a creatinine 1.05, potassium normal. Microbiology with E. coli in 2 sets of b lood cultures. ASSESSMENT: Ischemic cardiomyopathy, type 2 diabetes and peripheral vascular disease with atrial fib rillation and now with E. coli bacteremia with sepsis, probably secondary to urinary tract infection and pyelonephritis. The patient has evidence of BPH and steadily improving. Continue Rocephin. Eventually transition to oral Bactrim for discharge planning. Treat for about 14 days.
[2017-06-27 09:39] VITALS: BP 134/78; TEMP 97.9
[2017-06-27] MEDS: Aspirin 81 mg Enteric Coated Tablet PO SCH (09:40)
[2017-06-27] MEDS: Cilostazol 100 MG TAB PO SCH (09:40)
[2017-06-27] MEDS: Spironolactone 25 MG TAB PO SCH (09:40)
[2017-06-27] MEDS: Losartan 25 MG TAB PO SCH (09:40)
[2017-06-27] MEDS: Famotidine 20 MG TAB PO SCH (09:40)
[2017-06-27] MEDS: Carvedilol 25 MG TAB PO SCH (09:40)
[2017-06-27] MEDS: Docusate 100 MG CAP PO SCH (09:40)
[2017-06-27] MEDS: CEFTRIAXONE 2GM/50 ML BAG 2 GM in Premix Bag 1 BAG IVPB SCH (09:43)
--- NOTE | 2017-06-27 11:56 | PDOC.PN ---
- Subjective Encounter Start Date: 06/27/17 Encounter Start Time: 11:54 Mr. Lopez was seen today in follow-up. He is sitting up at the side of the bed eating. He does not have any complaints. - Objective Resuscitation Status: Resuscitation Status FULL:Full Resuscitation MAR Reviewed: Yes Vital Signs & Weight: Vital Signs (12 hours) Temp Pulse Resp BP BP Pulse Ox 06/27/17 09:10 97.9 F 83 19 134/78 100 06/27/17 04:28 97.5 F L 85 20 141/70 H 96 06/27/17 00:00 97.4 F L 73 18 106/57 L 96 Weight Weight 141 lb 3.2 oz I&O: 06/26/17 06/27/17 06/28/17 06:59 06:59 06:59 Intake Total 1303 360 Balance 1303 360 Result Diagrams: 06/24/17 04:48 06/24/17 04:48 Additional Labs: Accuchecks 06/27/17 06/27/17 06/26/17 11:11 05:40 21:03 POC Glucose 104 88 122 H 06/26/17 06/26/17 17:18 12:00 POC Glucose 92 122 H Phys Exam - Physical Examination HEENT: PERRLA Respiratory: no wheezing, no rales, no rhonchi, clear to auscultation bilateral Cardiovascular: RRR, no significant murmur, no rub Gastrointestinal: soft, non-tender, positive bowel sounds Musculoskeletal: no edema Dx/Plan (1) E coli bacteremia Code(s): R78.81 - BACTEREMIA Status: Acute Comment: Likely from Urine Source - Meets criteria for E. Coli sepsis (2) Atrial fibrillation with RVR Code(s): I48.91 - UNSPECIFIED ATRIAL FIBRILLATION Status: Acute Comment: ? acute/chronic, rate controlled currently off Cardizem gtt, continue Coreg 12.5mg TID, Coumadin daily (3) Diabetes mellitus type 2 in nonobese Code(s): E11.9 - TYPE 2 DIABETES MELLITUS WITHOUT COMPLICATIONS Status: Acute (4) Hypertension Code(s): I10 - ESSENTIAL (PRIMARY) HYPERTENSION Status: Acute (5) Peripheral vascular disease Code(s): I73.9 - PERIPHERAL VASCULAR DISEASE, UNSPECIFIED Status: Acute - Plan * AFIB with RVR- his heart rate is controled on Carvediolol * UTI- due to E. Coli- he can be discharged home on Omnicef * Stable for discharge home.
--- NOTE | 2017-06-27 19:22 | DIS ---
DATE OF ADMISSION: 06/22/2017 DATE OF DISCHARGE: 06/27/2017 PRIMARY CARE: [facility]. DISCHARGE DISPOSITION: Home. PRIMARY DISCHARGE DIAGNOSES: 1. Atrial fibrillation with rapid ventricular response. 2. Urinary tract infection due to Escherichia coli with Escherichia coli sepsis. 3. Hypertension. 4. Cerebrovascular accident x4. 5. Benign prostatic hypertrophy. 6. Chronic anticoagulation with Coumadin. DISCHARGE MEDICATIONS: Include Omnicef 300 mg twice a day for 10 additional days, Lipitor 40 mg at b edtime, carvedilol 25 mg twice daily, cilostazol 100 mg daily, Lasix 40 mg daily, losartan 25 mg fina y, Aldactone 25 mg daily, Coumadin 3 mg daily. The patient has instructions to have his PT/INR check ed in 3 days and he will need close followup of the PT/INR since he is on Coumadin and a new antibiot ic. CODE STATUS: FULL CODE. ALLERGIES: No known drug allergies. PROCEDURES DONE DURING ADMISSION: The patient had an echocardiogram which demonstrated an ejection f raction of 20-25%. There was moderate mitral regurgitation as well as moderate aortic regurgitation. The patient also had a CT scan of the abdomen and pelvis that was limited due to lack of oral contr ast. There were some findings of pulmonary edema as well as cardiomegaly, nonobstructing bilateral r enal stones and a layering pleural effusion on the left and some mild diverticular disease without in flammation. HOSPITAL COURSE: Ms. Lopez is a pleasant 82-year-old gentleman who was admitted to the hospital wit h complaints of shortness of breath and palpitations. He was found to be in atrial fibrillation with a heart rate in the 160s. He was admitted and evaluated by Cardiology. He was placed on Cardizem w ith good rate control. He was also found to have E. coli bacteremia which was thought to be due to a urine source. CT scan of the abdomen was unrevealing and it was recommended by Infectious Disease t hat he be placed on 2 weeks of appropriate antibiotic therapy. The E. coli was sensitive to cephalos porins and he was discharged home on Omnicef after 4 days of IV Rocephin. The patient was offered a LifeVest as he does have Medicare; however, the patient refused. He says that it was uncomfortable a nd doctors in the past had tried giving him one before; he only wore it apparently just 1 day and too k it off. By the time of discharge, the patient was clinically stable without any complaints. Heart rate was controlled and he is being discharged home to have close outpatient followup.
--- NOTE | 2017-06-28 08:24 | PRG ---
DATE OF SERVICE: 06/27/2017 SUBJECTIVE: Mr. Lopez appears to be improving. He has no current complaints. No further fevers. He is now on p.o. antibiotics. OBJECTIVE: VITAL SIGNS: Blood pressure is 110/70, pulse 80, respiration 20. LUNGS: Clear to auscultation. HEART: Irregular, irregular. ABDOMEN: Soft, nontender, nondistended. EXTREMITIES: No edema. IMPRESSION: 1. Chronic systolic congestive heart failure. 2. Coronary artery disease. 3. Status post bypass surgery. 4. E. Coli sepsis. PLAN: From a heart standpoint, Mr. Lopez appears to be improving. From my standpoint, it would be okay for discharge.
== END 2017-06-27 14:04 | disposition home or self-care (01) | DRG 872 ==
LOC: ERS 22:57 → EDBD 22:57 → 2NO 06-22 01:00
PROVIDERS: ADMIT Internal Medicine; ATTEND Internal Medicine
DX: A41.51 Sepsis due to Escherichia coli [E. coli] (principal); E87.2 Acidosis; E11.51 Type 2 diabetes mellitus with diabetic peripheral angiopathy without gangrene; E11.319 Type 2 diabetes mellitus with unspecified diabetic retinopathy without macular edema; I24.8 Other forms of acute ischemic heart disease; I50.22 Chronic systolic (congestive) heart failure; N12 Tubulo-interstitial nephritis, not specified as acute or chronic; N39.0 Urinary tract infection, site not specified; I11.0 Hypertensive heart disease with heart failure; I48.91 Unspecified atrial fibrillation; I73.9 Peripheral vascular disease, unspecified; Z86.73 Personal history of transient ischemic attack (TIA), and cerebral infarction without residual deficits; Z79.01 Long term (current) use of anticoagulants; N40.0 Benign prostatic hyperplasia without lower urinary tract symptoms; Z89.611 Acquired absence of right leg above knee; I25.10 Atherosclerotic heart disease of native coronary artery without angina pectoris; Z95.1 Presence of aortocoronary bypass graft; I25.5 Ischemic cardiomyopathy; I08.0 Rheumatic disorders of both mitral and aortic valves; Z79.4 Long term (current) use of insulin; Z16.23 Resistance to quinolones and fluoroquinolones; Z16.11 Resistance to penicillins; I45.10 Unspecified right bundle-branch block
CPT/HCPCS: 36415; 36416; 71045; 74019; 74177; 80048; 80053; 81003; 81015; 82553; 83036; 83605; 83735; 83880; 84100; 84443; 84484; 85007; 85025; 85027; 85610; 85730; 86140; 87040; 87077; 87149; 87186; 87633; 93005; 93306; 94760; 96365; 96366; 96368; 96372; 96375; 96376; A4216; J0696; J1160; J1650; J1885; J2270; J2405; J7050; Q0162

== ENCOUNTER 2017-07-08 18:12 | Emergency (ER) | payer MEDICARE ==
--- NOTE | 2017-07-08 19:17 | RAD ---
LEFT WRIST THREE VIEWS: History: Joint pain. Comparison: None. FINDINGS: There is some slight deformity of the distal radius suggesting possibly an old injury. There is irreg ularity to the scapholunate joint. There is prominent subchondral cystic change involving the proxima l aspect of the scaphoid. This may also be the sequellae of an old injury. The proximal pole is somew hat small but it is not sclerotic or show any other evidence for avascular necrosis. There is some cy stic change of the adjacent lunate. IMPRESSION: Degenerative change of the wrist, some of which may be related to old post-traumatic change. POS: [facility]
[2017-07-08] MEDS ORDERED: HYDROcodone/Acetaminophen 5/325 mg Tablet ONE (20:17)
== END 2017-07-08 21:37 | disposition home or self-care (01) ==
LOC: ERS 18:12
DX: M10.9 Gout, unspecified (principal); E11.9 Type 2 diabetes mellitus without complications; I10 Essential (primary) hypertension; Z79.899 Other long term (current) drug therapy

== ENCOUNTER 2017-10-15 19:49 | Inpatient (IN) | payer MEDICARE ==
[2017-10-15 20:32] LABS: #Eosinphils 0.1 thou/uL (0.0-0.7); #Lymphocytes 1.3 thou/uL (1.20-3.40); #Monocytes 0.7 thou/uL (0.11-0.59); #Neutrophils 4.6 thou/uL (1.40-6.50); %Basophils 0.5 % (0.0-1.0); %Eosinophils 2.2 % (0.0-10.0); %Lymphocytes 18.7 % (21.0-51.0); %Monocytes 10.3 % (0.0-10.0); %Neutrophils 68.3 % (42.0-75.0); Hemoglobin 13.5 g/dL (14.0-18.0); Mean Corpuscular HGB CONC 35.1 g/dL (32.0-36.0); Mean Corpuscular Hemoglobin 31.8 pg (27.0-31.0); Mean Corpuscular Volume 90.6 fl (80.0-94.0); Mean Platelet Volume 8.8 fL (7.4-10.4); Platelet Count 185 thou/uL (130-400); RBC Distribution Width 14.8 % (11.5-14.5); Red Blood Cell (RBC) Count 4.25 mill/uL (4.70-6.10); White Blood Cell (WBC) Count 6.7 thou/uL (4.8-10.8)
[2017-10-15 20:50] LABS: ALT (SGPT) 14 U/L (8-55); AST (SGOT) 17 U/L (5-34); Albumin 3.7 g/dL (3.4-4.8); Alkaline Phosphatase 124 U/L (40-150); Anion Gap 15 mmol/L (10-20); BUN (Urea Nitrogen) 29 mg/dL (8.4-25.7); Bilirubin, Total 0.6 mg/dL (0.2-1.2); Calc. Creatinine Clearance 0 mL/min (70-130); Calcium 8.6 mg/dL (7.8-10.44); Carbon Dioxide 18 mmol/L (23-31); Chloride 112 mmol/L (98-107); Estimated GFR-MDRD 62; Globulin 3.6 g/dL (2.4-3.5); Glucose 171 mg/dL (83-110); Potassium 4.6 mmol/L (3.5-5.1); Protein, Total 7.3 g/dL (5.8-8.1); Sodium 140 mmol/L (136-145)
--- NOTE | 2017-10-15 23:20 | ULT ---
LEFT LOWER EXTREMITY VENOUS DUPLEX EXAM: 10/15/17 HISTORY: Left leg pain and edema. Real time color doppler evaluation of the left lower extremity was performed from groin to calf. This includes evaluation of the common femoral, superficial and profunda femoral, saphenous, popliteal, a nd trifurcation veins. This shows a patent deep venous system. There is normal compressibility and au gmentation. There is no evidence of DVT. . IMPRESSION: No evidence of DVT of the left lower extremity. POS: [facility]
[2017-10-15] MEDS ORDERED: Piperacillin/Tazobactam 4.5 GM VIAL ONE (23:41)
[2017-10-15] MEDS ORDERED: Morphine 4 MG/ML VIAL ONE (23:41)
[2017-10-15] MEDS ORDERED: Clindamycin/D5W 900 mg/50 ml Premix Bag ONE (23:41)
[2017-10-16 00:18] LABS: INR-International Normal Ratio 1.4
[2017-10-16] MEDS ORDERED: Clindamycin/D5W 900 mg/50 ml Premix Bag ONE (00:49)
[2017-10-16] MEDS ORDERED: Potassium Bicarbonate/Cit Ac 25 MEQ TAB ONE (01:33)
[2017-10-16] MEDS ORDERED: Ondansetron ODT 4 MG TAB ONE (01:34)
[2017-10-16] MEDS ORDERED: Morphine 4 MG/ML VIAL ONE (02:17)
[2017-10-16] MEDS ORDERED: Acetaminophen 500 MG TAB ONE (02:57)
[2017-10-16] MEDS ORDERED: Furosemide 20 MG/2 ML VIAL ONE (02:57)
[2017-10-16] MEDS ORDERED: Sodium Chloride 0.9% 1,000 ML IV SCH (03:36)
[2017-10-16] MEDS ORDERED: Ondansetron HCl/PF 4 MG/2 ML Vial IVP PRN (03:36)
[2017-10-16] MEDS ORDERED: Acetaminophen 325 MG TAB PO PRN ×2 (03:36→07:55)
[2017-10-16] MEDS ORDERED: Ondansetron ODT 4 MG TAB SL PRN (03:36)
[2017-10-16] MEDS ORDERED: Morphine 4 MG/ML VIAL SLOW IVP PRN ×2 (03:37)
[2017-10-16 04:12] VITALS: BMI 26.4
--- NOTE | 2017-10-16 05:50 | PDOC.EVN ---
Event Note - Event Note Event Note: RN called - Pt had NSVT. Will check labs. 2gm Magnessium IV x 1
[2017-10-16] MEDS ORDERED: Magnesium 2 GM/NS 0.9% 100 ML 2 GM in Premix Bag 1 BAG IVPB SCH (06:00)
[2017-10-16 06:21] LABS: Anion Gap 13 mmol/L (10-20); BUN (Urea Nitrogen) 29 mg/dL (8.4-25.7); Calc. Creatinine Clearance 49 mL/min (70-130); Calcium 8.6 mg/dL (7.8-10.44); Carbon Dioxide 19 mmol/L (23-31); Chloride 112 mmol/L (98-107); Estimated GFR-MDRD 61; Glucose 145 mg/dL (83-110); Magnesium 2.2 mg/dL (1.6-2.6); Potassium 4.4 mmol/L (3.5-5.1); Sodium 140 mmol/L (136-145)
[2017-10-16 06:27] LABS: Troponin I 0.031 ng/mL (< 0.028); Troponin I 0.033 ng/mL (< 0.028)
[2017-10-16] MEDS ORDERED: HYDROcodone/Acetaminophen 7.5/325 mg Tablet PO PRN (07:55)
[2017-10-16] MEDS ORDERED: Dextrose 50% Abboject 50 ML SYRINGE SLOW IVP PRN (07:55)
[2017-10-16] MEDS ORDERED: HumaLOG 300 UNITS/3 ML VIAL SC PRN (07:55)
[2017-10-16] MEDS ORDERED: Zolpidem Tartrate 5 MG TAB PO PRN (07:55)
[2017-10-16] MEDS ORDERED: Dextrose 5% in Water 1,000 ML IV PRN (07:55)
--- NOTE | 2017-10-16 07:59 | CON ---
DATE OF CONSULTATION: 10/16/2017 HISTORY OF PRESENT ILLNESS: Mr. Wadsworth is here in the hospital, admitted through the emergency depar tment. There is no information in his chart currently. He apparently has a longstanding history of peripheral vascular disease. He is status post right abo ve-the-knee amputation in [place] 8 years ago. He has rest pain in his left leg. This is a finisher hand navin problem for many years. Due to my limited Urdu, I am unable to get any more pertinent history from him at this time. PAST MEDICAL HISTORY: Unknown. PAST SURGICAL HISTORY: Unknown. CURRENT MEDICATIONS: Current medications are documented in his chart. ALLERGIES: None. SOCIAL HISTORY: Unknown. PHYSICAL EXAMINATION: VITAL SIGNS: Height 5 feet 4 inches, weight 153 pounds, temperature is 97.1, pulse is 82 and regular , blood pressure 112/64. CHEST: Clear bilaterally. HEART: Rhythm is regular. ABDOMEN: Soft and nontender. EXTREMITIES: His right [id number] amputation has healed nicely. His left leg has erythema and e romina below the knee. Some of this is probably venous stasis and some may be cellulitic in nature. VASCULAR: He has palpable femoral pulse on the left. I can Doppler only the popliteal. ASSESSMENT AND PLAN: This is a patient with chronic peripheral vascular disease. He has no medical history here. We will get a CT angiogram on him to document his vascular anatomy and make plans from there. I need to speak with family to find out his status as far as a standing and using his leg. If he is bedbound there is really no reason to do any further workup outside of a CT scan.
--- NOTE | 2017-10-16 08:09 | RAD ---
SINGLE VIEW OF THE CHEST: Comparison: 06-21-17 History: Edema in the left leg for three days. FINDINGS: Single view of the chest shows an enlarged but stable cardiomediastinal silhouette with atherosclerot ic calcifications in the aorta. There is no evidence of consolidation, mass, or pleural effusion. Deg enerative changes are seen in the spine. IMPRESSION: Cardiomegaly without evidence of acute cardiopulmonary disease. POS: [facility]
[2017-10-16] MEDS ORDERED: Morphine 4 MG/ML Carpuject SLOW IVP PRN (08:15)
[2017-10-16] MEDS ORDERED: Morphine 4 MG/ML VIAL IV PRN (08:17)
--- NOTE | 2017-10-16 08:30 | HP ---
PRIMARY CARE PROVIDER: Corby Amador. CHIEF COMPLAINT/REASON FOR ADMISSION: Referred to the [facility] by [facility] Department for cellulitis in the left lower extremity. History, etc. was difficult even with a t ranslator phone and people present, he appears to be somewhat confused. HISTORY OF PRESENT ILLNESS: The patient is an 82-year-old man who states that he has abdominal pain and pain in his left leg and his right leg that have been present for a year. He denies fever, chill s, sweats. The redness in his left lower extremity has apparently been there for approximately a yea r and has had frequent courses of antibiotics without change. His leg is very sensitive to touch. H e has no nausea, vomiting, diarrhea, constipation, melena. PAST MEDICAL HISTORY: Pertinent for atrial fibrillation, cardiomyopathy, anticoagulation, hypertensi on, diabetes mellitus type 2, chronic kidney disease stage 3 and neuropathy. CURRENT MEDICATIONS: Lisinopril 10 mg a day, Lasix 40 mg a day, warfarin 40 mg a day, Coreg 12.5 mg twice a day, Spironolactone 25 mg a day. ALLERGIES: No known drug allergies. PAST SURGICAL HISTORY: Right AK amputation, appendectomy. SOCIAL HISTORY: Resident of [place] for less than 6 months, moved here from [facility]. No current alcohol, tobacco, drug use. FAMILY HISTORY: Positive for hypertension, diabetes in multiple members. REVIEW OF SYSTEMS: Attempted. Unfortunately, I do not consider it reliable, but these are his answe rs. GENERAL: No fever or chills. Some weakness. No dizziness. 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 No flashing lights. He does have blurred vision. ENT: No ear pain or drainage. No nose bleeds, no trouble swallowing. CARDIAC: No chest pain, orthopnea, paroxysmal nocturnal dyspnea. RESPIRATIONS: At bed rest basically due to right AKA amputation. No asthma, wheezing, shortness of breath. GASTROINTESTINAL: Generalized abdominal pain, discomfort. No change with foods, etc. No nausea, vo miting, no diarrhea or constipation, no blood in his stools. GENITOURINARY: No hematuria or dysuria. MUSCULOSKELETAL: Pain in his stump on his right leg, severe pain in his left leg with touch. No his tory of swelling, no muscle pains. SKIN: Redness in his left lower extremity for approximately a year, no response to antibiotics. HEME/LYMPH: Did not understand. NEUROLOGICAL: Questionable history of a stroke in the past x4. No focal weakness. 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 VITAL SIGNS: Temperature 97.1, pulse 91, respirations 12, blood pressure 132/89. HEENT: Revealed a severely deformed left pupil with left drift. Extraocular movements are roughly c onjugate. Right pupil is round and reactive. Sclerae white. Tympanic membranes are clear. Nose is clear. Multiple missing teeth, fair dental hygiene. NECK: No jugular venous distention, adenopathy or thyromegaly. CHEST: Clear to percussion. Good breath sounds. No focal findings. HEART: Regular rate and rhythm with occasional irregular beat. No murmurs, no gallops. ABDOMEN: Soft, bowel sounds normal. No hepatosplenomegaly, no mass, no rebound, no bruits. EXTREMITIES: Revealed right AK amputation with a healed stump. His left lower extremity from the kn ee down is red, tender. It is not warm, it is not cold, but is cool. Pulses - undetectable pulse in the left foot, detectable pulse in the left groin. Carotid, radial pulses are palpable and symmetri c. SKIN: Warm and dry. He has erythema from the knee to the foot on the left. HEME/LYMPH: No tender or swollen lymph nodes in axilla, inguinal or cervical area. NEUROLOGIC: Strength symmetric in his arms. Facies are symmetric. He moves all 4 extremities. X-RAY FINDINGS: EKG - atrial fibrillation, frequent PVCs, one episode of nonsustained ventricular ta chycardia on the monitor, reviewed by me. Chest x-ray - cardiomegaly, no infiltrate or pulmona ry edema, reviewed by me. LABORATORY: Sodium 140, potassium 4.4, CO2 19, creatinine 1.15, BUN 29. BNP is elevated at 2219. C ardiac enzymes 0.03 consistent with his last admission. INR is low at 1.4. White count 6.7 with no neutrophilia, hemoglobin 13.5, platelet count 185,000. ADMITTING DIAGNOSES: 1. Severe peripheral vascular disease with ischemic pain, erythema, absent pulse in the left foot. 2. Diabetes mellitus type 2 with neuropathy, vasculopathy and chronic kidney disease stage 3. 3. Cardiomyopathy. 4. Hypertension. 5. Atrial fibrillation. 6. Anticoagulation. PLAN: Dr. Santiago Wong, Cardiovascular, has seen the patient in consultation. He has ordered a CT angiogram of the aorta, bilateral runoff. Accu-Cheks and sliding scale will be followed. Difficult situation, admitted as observation initially and will probably need to be converted to full admission due to the ischemic pain in his leg.
[2017-10-16] MEDS ORDERED: Clindamycin/D5W 900 MG in Premix Bag 1 BAG IVPB SCH (09:00)
[2017-10-16] MEDS ORDERED: Warfarin Sodium 1 MG TAB PO SCH (09:00)
[2017-10-16] MEDS ORDERED: Prevnar 13-Val Conj/PF 0.5 ML SYRINGE IM ONE (09:00)
[2017-10-16] MEDS: Carvedilol 25 MG TAB PO SCH (10:06)
[2017-10-16] MEDS: Furosemide 20 MG TAB PO SCH (10:07)
[2017-10-16] MEDS: Ondansetron ODT 4 MG TAB PO PRN ×2 (10:07→19:23)
[2017-10-16] MEDS: Lisinopril 10 MG TAB PO SCH (10:07)
[2017-10-16] MEDS: Spironolactone 25 MG TAB PO SCH (10:08)
[2017-10-16] MEDS: Enoxaparin Sodium 40 MG/0.4 ML SYRINGE SC SCH (10:08)
--- NOTE | 2017-10-16 11:37 | CT ---
CT ANGIOGRAM ABDOMEN AND PELVIS WITH IV CONTRAST AND 3D RECONSTRUCTIONS CT ANGIOGRAM BILATERAL LOWER EXTREMITIES WITH RUNOFF TO THE FEET WITH IV CONTRAST AND 3D RECONSTRUCTI ONS: Date: 10-16-17 History: Peripheral vascular disease. Comparison: CT abdomen/pelvis, 06-24-17. FINDINGS: CT ANGIOGRAM ABDOMEN/PELVIS: Again, there are small bilateral pleural effusions with associated passive atelectasis. The heart rem ains enlarged. There are ground glass densities seen at each lung base, probably also attributable to volume loss. There is atherosclerotic calcifications and atherosclerotic plaque involving the abdominal aorta as w ell as the iliac arteries. Acentric mural thrombus is seen within the infrarenal abdominal aorta resu lting in mild luminal narrowing. No abdominal aortic aneurysm is present. There is atherosclerotic plaque involving the proximal celiac artery which results in mild to moderat e narrowing. The superior mesenteric artery is patent although there is mild atherosclerotic irregula rity involving the proximal superior mesenteric artery. There is a focal area of critical stenosis in volving the proximal inferior mesenteric artery. Origin of the inferior mesenteric artery is also not well seen. There are single renal arteries bilaterally. There is atherosclerotic irregularity and plaque involvi ng each renal artery resulting in mild narrowing of the proximal left renal artery and moderate narro wing with the degree of narrowing probably just greater than 50% involving the proximal right renal a rtery. There is atherosclerotic plaque and prominent calcifications involving the iliac arteries bilaterally , but the bilateral common iliac as well as external iliac arteries are patent. There is mild narrowi ng involving the proximal right internal iliac artery with moderate narrowing involving the junction of the proximal mid portion of the left internal iliac artery. Noted on the prior exam, there are nonobstructing bilateral renal calculi again present. Subcentimete r too small to characterize hypodense lesions are seen in each kidney. There is an approximately 1.4 cm hypodense cystic lesion seen in the proximal body of the pancreas. The liver, spleen, bilateral adrenal glands, and urinary bladder demonstrate a normal CT appearance. The prostate gland is enlarged measuring 5.4 cm in transverse dimensions and also is heterogeneous in appearance with associated calcifications. This does result in mass effect on the inferior aspect of the urinary bladder. Colonic diverticulosis is present. There are multilevel degenerative changes in the lumbar spine with a few scattered Schmorl's nodes pr esent. CT ANGIOGRAM LOWER EXTREMITIES WITH RUNOFF TO THE FEET: Right Lower Extremity: The right common femoral artery is patent with atherosclerotic vascular calcifications identified. Th e right lower extremity superficial femoral artery is occluded at the origin. Portions of the proxima l profunda femoral artery are patent. There is diffuse atherosclerotic calcifications and plaque thro ughout the profunda femoral artery with focal area of severe stenosis involving a portion of the prox imal right superficial femoral artery. Left Lower Extremity: The left common femoral artery demonstrates atherosclerotic plaque and a mild degree of narrowing pre sent. Atherosclerotic calcifications and plaque is seen involving both the superficial femoral and pr ofunda femoral arteries with mild degrees of narrowing involving the profunda femoral artery as well as portions of the left superficial femoral artery. There is a moderate focal area of narrowing invol ving the most proximal popliteal artery just distal to the level of the adductor canal as well as a m oderate to severe degree of narrowing seen within the above the knee left popliteal artery. There is no contrast opacification of the most distal left popliteal artery or tibial peritoneal vessels. Whil e this could be a factor of occlusion of the distal popliteal artery, this could be related to timing of the contrast bolus. There is subcutaneous edema seen about the left lower extremity, predominately from the level of the knee to the foot. IMPRESSION: 1. Diffuse atherosclerotic vascular disease involving the abdominal aorta and lower extremity arteria l vessels. There is prominent eccentric atherosclerotic plaque and in the abdominal aorta. 2. Mild to moderate narrowing involving the proximal celiac artery with moderate narrowing of a singl e right renal artery. 3. Focal critical stenosis involving the most proximal inferior mesenteric artery. 4. 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 5. Atherosclerotic opacities involving the superficial femoral and popliteal artery on the left with severe narrowing involving the most proximal above the knee left popliteal artery as well as narrowin g of the popliteal artery just above the level of the knee joint. The most distal left lower extremit y popliteal artery and tibioperoneal vessels are not opacified on this exam. This could be a factor o f timing of the contrast bolus as opposed to occlusion of the distal left popliteal artery, but this cannot be further evaluated on this exam. 6. Subcutaneous edema distal left lower extremity, predominately from the knee to the level of the fo ot. Cellulitis is a possibility. 7. Cardiomegaly. 8. Small bilateral pleural effusions. 9. Bilateral nonobstructing renal calculi with subcentimeter too small to characterize hypodense lesi ons in each kidney. 10. Chronic diverticulosis. POS: [facility]
--- NOTE | 2017-10-16 15:43 | PDOC.EVN ---
Event Note - Event Note Event Note: CTA reveals critical stenosis of inf mesenteric artery, and severe obstruction t flow in LLE. he will require 3-4 days inpt for safe outcome
[2017-10-16] MEDS ORDERED: Warfarin Sodium 3 MG TAB PO SCH (17:00)
[2017-10-17 05:47] LABS: INR-International Normal Ratio 1.4; Prothrombin Time 17.7 SEC (12.0-14.7)
[2017-10-17] MEDS: Spironolactone 25 MG TAB PO SCH (06:24)
[2017-10-17] MEDS: Carvedilol 25 MG TAB PO SCH (06:24)
[2017-10-17] MEDS: Lisinopril 10 MG TAB PO SCH (06:25)
[2017-10-17] MEDS: Furosemide 20 MG TAB PO SCH (06:25)
--- NOTE | 2017-10-17 08:14 | PDOC.PN ---
- Subjective Encounter Start Date: 10/17/17 Encounter Start Time: 08:12 Subjective: pain in left leg - Objective Resuscitation Status: Resuscitation Status FULL:Full Resuscitation Vital Signs & Weight: Vital Signs (12 hours) Pulse Resp BP BP 10/17/17 06:25 130/71 10/17/17 03:47 95 15 130/71 Weight Weight 144 lb 14.4 oz I&O: 10/16/17 10/17/17 10/18/17 06:59 06:59 06:59 Intake Total 894 Balance 894 Result Diagrams: 10/15/17 20:18 10/16/17 05:56 Additional Labs: Accuchecks 10/17/17 10/16/17 10/16/17 06:25 20:23 16:35 POC Glucose 95 136 H 113 H Phys Exam - Physical Examination Neck: no JVD Respiratory: clear to auscultation bilateral Cardiovascular: no significant murmur, irregular Gastrointestinal: soft, positive bowel sounds red tender L leg knee to toes, no pulse in DP or PT Dx/Plan (1) Atrial fibrillation with controlled ventricular rate Code(s): I48.91 - UNSPECIFIED ATRIAL FIBRILLATION Status: Chronic (2) Diabetes mellitus type 2 in nonobese Code(s): E11.9 - TYPE 2 DIABETES MELLITUS WITHOUT COMPLICATIONS Status: Chronic (3) Hypertension Code(s): I10 - ESSENTIAL (PRIMARY) HYPERTENSION Status: Chronic Qualifiers: Hypertension type: essential hypertension Qualified Code(s): I10 - Essential (primary) hypertension (4) Peripheral vascular disease Code(s): I73.9 - PERIPHERAL VASCULAR DISEASE, UNSPECIFIED Status: Acute (5) Cardiomyopathy Code(s): I42.9 - CARDIOMYOPATHY, UNSPECIFIED Status: Chronic Qualifiers: Cardiomyopathy type: unspecified Qualified Code(s): I42.9 - Cardiomyopathy , unspecified Comment: EF 20-25%, continue Losartan and Spironolactone, ASA 81mg daily, ? AICD (6) Abdominal pain Code(s): R10.9 - UNSPECIFIED ABDOMINAL PAIN Status: Acute Qualifiers: Abdominal location: unspecified location Qualified Code(s): R10.9 - Unspecified abdominal pain - Plan severe ischemic pain in L leg, angios pending, cont MS for pain -: abd pain due to reduced flow JESSICA -: discuss with [facility] -: cont creg,lisinopril, lasix * .
[2017-10-17] MEDS: Enoxaparin Sodium 40 MG/0.4 ML SYRINGE SC SCH (09:17)
[2017-10-17] MEDS ORDERED: Lidocaine 1% (PF) 30 ML VIAL ONE (09:58)
[2017-10-17] MEDS ORDERED: Iopamidol 370 76% 50 ML VIAL FS ONE (11:02)
[2017-10-17] MEDS ORDERED: Midazolam HCl 2 mg/2 ml Vial ONE (14:16)
[2017-10-17] MEDS ORDERED: Fentanyl 100 MCG/2 ML VIAL ONE (14:17)
--- NOTE | 2017-10-17 14:58 | OP ---
DATE OF PROCEDURE: 10/17/2017 PREOPERATIVE DIAGNOSIS: Peripheral vascular disease with right and left lower extremity. POSTOPERATIVE DIAGNOSIS: Peripheral vascular disease with right and left lower extremity. PROCEDURES: 1. Ultrasound guided right femoral artery access. 2. Abdominal aortogram. 3. Left external iliac artery angiogram with left leg runoff. TOTAL CONTRAST: 8 mL. TOTAL FLUORO TIME: 2.0 minutes. ANESTHESIA: 1% lidocaine for local with 1 mg Versed/25 mcg fentanyl given for IV sedation. DESCRIPTION OF PROCEDURE: After consent was obtained, the patient was brought to dock or pier laborer, placed in supine position on the dock or pier laborer table. Sedation was begun. Groins were prepped and draped in usual sterile fashion. Right groin was anesthetized using 1% lidocaine. Using ultrasound guidance, the r ight common femoral artery was accessed with micropuncture sheath. This was exchanged over an 0.035 guidewire for a 5-Malay sheath. Contra catheter was passed into the abdominal aorta. Hand injected aortogram was performed. The aorta and iliac vasculature was heavily calcified, but there was no ob structive disease. Contra catheter was guided over the aortic bifurcation down into the external malissa ac artery. Digital angiography was used to jena contrast from groin down to below the knee. The co mmon femoral, superficial femoral, and profunda femoris arteries were widely patent with no evidence of significant stenosis. At the level of the popliteal, there was some mild stenotic areas. Trifurc ation vessels were occluded with no filling via collaterals of any below knee artery. Guidewires, sh eaths and catheters were all removed and manual pressure held for hemostasis. The patient will need amputation when he comes to that point.
--- NOTE | 2017-10-17 15:34 | PDOC.EVN ---
Event Note - Event Note Event Note: post LLE angios. no revascularization. will eventually require amputation.
[2017-10-17] MEDS ORDERED: traMADol HCl 50 MG TAB PO PRN (15:36)
[2017-10-17] MEDS: Gabapentin 100 MG CAP PO SCH (20:13)
[2017-10-18 05:38] LABS: INR-International Normal Ratio 1.5; Prothrombin Time 18.6 SEC (12.0-14.7)
[2017-10-18 07:58] VITALS: TEMP 97.7
[2017-10-18] MEDS: Lisinopril 10 MG TAB PO SCH (08:09)
[2017-10-18] MEDS: Spironolactone 25 MG TAB PO SCH (08:10)
[2017-10-18] MEDS: Gabapentin 100 MG CAP PO SCH ×2 (08:10→16:00)
[2017-10-18] MEDS: Carvedilol 25 MG TAB PO SCH (08:10)
[2017-10-18] MEDS: Furosemide 20 MG TAB PO SCH (08:10)
[2017-10-18] MEDS: Enoxaparin Sodium 40 MG/0.4 ML SYRINGE SC SCH (08:12)
[2017-10-18 12:36] VITALS: BP 131/66
--- NOTE | 2017-10-18 15:43 | DIS ---
DATE OF ADMISSION: 10/16/2017 DATE OF DISCHARGE: 10/18/2017 PRIMARY CARE PROVIDER: Perry Kidd. DISCHARGE DISPOSITION: Discharged home. FINAL DIAGNOSES: Severe peripheral vascular disease with ischemic pain in left lower extremity, diab etes mellitus type 2 with chronic kidney disease stage 2 and peripheral vascular disease, atrial fibr illation with controlled ventricular response, cardiomyopathy, hypertension. DISCHARGE MEDICATIONS: Same as admitting medications. Lisinopril 10 mg a day, Lasix 40 mg a day, Co umadin 3 mg daily, Coreg 12.5 mg p.o. b.i.d., Spironolactone 25 mg a day. CODE STATUS: FULL. PENDING AT THE TIME OF DISCHARGE: Nothing. ALLERGIES: None. HOSPITAL COURSE: The patient admitted to [facility] for suspected cellulitis of the left lower extremity. It is pertinent that the patient has schmitz d multiple courses of antibiotics with no change in his leg. History was difficultly obtained with t [employer] substance abuse services director phone. Other information obtained from family. Past medical history is pertinent for atrial fibrillation, cardiomyopathy, Coumadin anticoagulation, hypertension, diabetes mellitus type 2 , chronic kidney disease stage 2. The patient was seen in consultation by Dr. Santiago Wong. He had aorta with runoff. CT angiogram, which revealed no circulation demonstrated clearly below the left knee. On 10/17/2017, the patient underwent ultrasound guided right femoral artery access runof f. The patient had no collaterals and severe stenosis below the left knee. He was advised to have a n amputation by Dr. Santiago Wong. He has refused. I have discussed with him and with his family to day. The family is desirous of taking him home to try to get the family to help convince him that he needs the surgery. Pertinent laboratory was done, sodium 140, potassium 4.4, chloride 112, CO2 19, BUN 29, creatinine 1.15, and blood sugar in the 100-200 range. Serial troponins were 0.03, 0.03, 0.0 3. I suspect this is related to his chronic kidney disease. His white count was 6.7, hemoglobin 13. 5, platelet count 185,000. His INR was slightly low at 1.5. His Coumadin was restarted. He is sheba buchaann discharged home to followup with his family and to follow up with Dr. Santiago Wong if he is agreea ble to surgery.
== END 2017-10-18 15:39 | disposition home or self-care (01) | DRG 300 ==
LOC: ERS 19:49 → 2NO 10-16 → OBSVTOIN 10-16
PROVIDERS: ADMIT Internal Medicine; ATTEND Internal Medicine
PROC: B4101ZZ Fluoroscopy of Abdominal Aorta using Low Osmolar Contrast (ICD-10-PCS; principal; 2017-10-17)
PROC: B41G1ZZ Fluoroscopy of Left Lower Extremity Arteries using Low Osmolar Contrast (ICD-10-PCS; 2017-10-17)
DX: E11.51 Type 2 diabetes mellitus with diabetic peripheral angiopathy without gangrene (principal); K55.1 Chronic vascular disorders of intestine; L03.116 Cellulitis of left lower limb; M31.9 Necrotizing vasculopathy, unspecified; I42.9 Cardiomyopathy, unspecified; I47.2 Ventricular tachycardia; I48.91 Unspecified atrial fibrillation; I70.202 Unspecified atherosclerosis of native arteries of extremities, left leg; Z79.01 Long term (current) use of anticoagulants; E11.40 Type 2 diabetes mellitus with diabetic neuropathy, unspecified; Z89.611 Acquired absence of right leg above knee; I12.9 Hypertensive chronic kidney disease with stage 1 through stage 4 chronic kidney disease, or unspecified chronic kidney disease; E11.22 Type 2 diabetes mellitus with diabetic chronic kidney disease; N18.3 Chronic kidney disease, stage 3 (moderate)
CPT/HCPCS: 36245; 36415; 36416; 71045; 75635; 75710; 76942; 80048; 80053; 82947; 83605; 83735; 83880; 84484; 85025; 85610; 85730; 86140; 87040; 96365; 96367; 96375; 96376; 99152; A4216; C1769; J1644; J1650; J1940; J2001; J2250; J2270; J2543; J3010; J3370; J3475; J3490; J7620; Q0162